=== PATIENT | female | born 2005 | race Caucasian/White ===

== ENCOUNTER 2025-02-15 06:14 | Day surgery (SDC) | payer OTHER, SELFPAY ==
[2025-02-15] VITALS (9 sets, daily range): BP systolic 112–125; BP diastolic 70–85; BMI 28.8
[2025-02-15] MEDS: NORMOSOL-R/PLASMALYTE-A 1000 IV (07:39)
[2025-02-15 07:53] LABS: HCG, Urine Qualitative Screen Negative
[2025-02-15] MEDS: TYLENOL 1000 MG PO (08:28)
== END 2025-02-15 12:25 | disposition home or self-care (01) ==
LOC: SDS 06:14
PROVIDERS: ATTENDING PHYSICIAN Otolaryngology
DX: J35.01 Chronic tonsillitis (principal); R06.83 Snoring; G47.33 Obstructive sleep apnea (adult) (pediatric)
CPT/HCPCS: 42821; 88304; 81025

== ENCOUNTER 2025-02-18 07:11 | Emergency (ER) | payer OTHER, SELFPAY ==
[2025-02-18 07:14] VITALS: BP 118/72
--- NOTE | 2025-02-18 08:13 | ED.GENMED ---
History of Present Illness
General
Chief Complaint: Headache
Source: patient
Time Seen by Provider: 02/18/25 07:53
History of Present Illness
History of Present Illness:
19-year-old female presents to the emergency room complaining of headache. Patient developed a headache yesterday and describes it as a pressure primarily left-hand side. Headache seems worse with exposure to lights as well as when she moves
around more. Patient is postop day 3 from a tonsillectomy. She feels like she has been trying her best to drink fluids but may not be drinking as much as she should. She was prescribed Tylenol and hydrocodone for the postoperative pain but this
has not helped her headache. Patient admits to having mild headaches from time to time but has not been diagnosed as having migraine headaches. No fever or chills.
Phy Exam
Physical Exam
Physical Exam:
General: Awake, Alert, Oriented X3. No acute distress.
Vitals: unremarkable
Head: Atraumatic
Eyes: Pupils equal, EOMI
Throat: Airway intact, no exudates
Neck: Trachea midline
Lungs: Clear and equal b/l
Heart: Regular rate, no murmurs
Abd: Soft, Nontender, No pulsatile mass
Neuro: Cranial nerves intact, muscle strength equal bilaterally, cerebellar exam normal
Skin: Warm, dry, no rash
Extremities: pulses equal b/l, no edema
Course
Orders/Labs/Results
Orders:
Orders
02/18/25 08:11
Diphenhydramine [Benadryl] 25 mg IV NOW STA
Metoclopramide [Reglan] 10 mg IV NOW STA
02/18/25 08:53
Basic Metabolic Panel Urgent
Complete Blood Count/No Diff Urgent
02/18/25 09:58
Ketorolac [Toradol] 30 mg IV NOW STA
Abnormal Lab Results
02/18/25
08:53
RBC 3.97 L 10^6/uL
(4.20-5.40)
Hgb 11.9 L g/dL
(12.0-16.0)
Hct 35.3 L %
(37.0-47.0)
02/18/25 08:53
02/18/25 08:53
Vital Signs
Initial and Last Documented VS:
Initial Vital Signs
Temp Pulse Resp BP Pulse Ox
98.0 F 87 16 118/72 98
02/18/25 07:14 02/18/25 07:14 02/18/25 07:14 02/18/25 07:14 02/18/25 07:14
Last Documented Vital Signs
Temp Pulse Resp BP Pulse Ox
98.0 F 75 20 119/68 98
02/18/25 07:14 02/18/25 12:00 02/18/25 12:00 02/18/25 12:00 02/18/25 12:00
MDM/Problems Addressed
Differential Diagnosis Includes:
Tension headache, migraine headache, dehydration
MDM/Problems Addressed:
Patient presents with a headache 3 days after tonsillectomy. Her neurologic exam is completely intact. She is in no distress. Patient treated with Reglan, Benadryl and Toradol. She had significant relief of her headache though she expressed
concern could come back. Recommended she maximize taking Tylenol 1000 mg every 6 hours. Patient was somewhat concerned that she could not take enough Tylenol because she was also prescribed [place]. We decided to stop the [place] and I will send a
prescription for plain oxycodone. Therefore she can take acetaminophen 1000 mg every 6 hours and use the oxycodone as needed
*Pulse Oximetry
Patient hypoxic: no
*Critical Care Note
Total Time (30-74mins, 75-104mins- exclusive of procedures): Not Applicable
ED Attending Note
-
Portions of this chart may have been created with voice recognition software.� Occasional wrong word or��sound alike� substitutions may have occurred due to the inherent limitations of voice recognition software.
Discharge Plan
Departure
Patient Disposition: Home (Routine Discharge)
Date of Disposition: 02/18/25
Time of Disposition: 12:07
Patient with high blood pressure during this ER visit?: No
Condition: Good
Discharge Problem:
Acute headache, Dehydration
Instructions: Headache, Adult (DC)
Prescriptions:
New
oxycodone 5 mg tablet
5 mg PO Q6H PRN (Reason: Pain) Qty: 12 0RF
No Action
norethindrone-e.estradiol-iron [Aurovela Fe 1-20 (28)] 1 mg-20 mcg (21)/75 mg (7) Tablet
1 tab PO DAILY
hydroxyzine pamoate [Vistaril] 25 mg Capsule
25 mg PO HS PRN (Reason: insomnia)
acetaminophen [Tylenol] 325 mg Tablet
325 mg PO ONCE PRN (Reason: pain)
Referrals:
Alexus Gibson DO [Family Provider] -
Activity Restrictions/Additional Instructions:
You can take the oxycodone every 6 hours for pain. You you should take 1000mg of Tylenol every 6 hours for pain. Try to get as much fluid in as possible.
Interventions
Interventions:
*Risk Screen - Suicide Last Done: 02/18/25 07:14
*General Assessment Last Done: 02/18/25 09:05
*Neglect/Abuse Screening Last Done: 02/18/25 07:14
*Nursing Disposition Last Done: 02/18/25 12:40
ED- Neurological Assessment Last Done: 02/18/25 09:05
Discharge Date and Time
Discharge Date/Time: 02/18/25 12:41
Print Language: [id number]
[2025-02-18] MEDS: REGLAN 10 MG IV (08:32)
[2025-02-18] MEDS: BENADRYL 25 MG IV (08:32)
[2025-02-18 08:59] LABS: Hematocrit 35.3 % (37.0-47.0); Hemoglobin 11.9 g/dL (12.0-16.0); Mean Corp Hgb Conc. 33.7 g/dL (33.0-37.0); Mean Corpuscular Volume 88.9 fL (81.0-99.0); Mean Platelet Volume 8.8 fL (7.4-10.4); Platelet Count 242 10^3/uL (130-400); Red Blood Cell Count 3.97 10^6/uL (4.20-5.40); Red Cell Dist. Width 13.7 % (11.5-14.5)
[2025-02-18 09:05] VITALS: BP 109/67
[2025-02-18 09:13] LABS: Blood Urea Nitrogen 8 mg/dl (7-17); Calcium 8.8 mg/dl (8.4-10.2); Carbon Dioxide 25 mmol/L (22-30); Chloride 102 mmol/L (98-107); Glucose 93 mg/dl (70-99); Potassium 3.8 mmol/L (3.5-5.1); Sodium 138 mmol/L (135-145); eGFR > 60.00
[2025-02-18] MEDS: TORADOL 30 MG IV (10:06)
[2025-02-18 12:00] VITALS: BP 119/68
== END 2025-02-18 12:41 | disposition home or self-care (01) ==
LOC: EMR 07:11
PROVIDERS: EMERGENCY PHYSICIAN Emergency Medicine; FAMILY PHYSICIAN Internal Medicine
DX: E86.0 Dehydration (principal); R51.9 Headache, unspecified; Z98.890 Other specified postprocedural states
CPT/HCPCS: 99284; 96374; 96375 ×2; 80048; 85027